=== PATIENT | male | born 1950 | race Caucasian/White ===

== ENCOUNTER 2021-11-21 15:59 | Emergency (ER) | payer SELFPAY ==
[2021-11-21] MEDS ORDERED: Acetaminophen/oxyCODONE 325-5 MG Tab PO ONE (16:00)
[2021-11-21] MEDS ORDERED: Sodium Chloride 0.9% 10 ML Syringe FLUSH PRN (16:19)
[2021-11-21] MEDS ORDERED: Ondansetron 4 MG/2 ML SDV IVPUSH ONE (16:22)
[2021-11-21] MEDS ORDERED: fentaNYL 100 MCG/2 ML SDV IVPUSH ONE (16:24)
[2021-11-21] MEDS ORDERED: Iopamidol 612 MG/ML 100 ML Bottle IVPUSH ONE (16:25)
[2021-11-21 16:50] LABS: ANION GAP 14.7 mEq/L (7-13); CHLORIDE,CL 103 mmol/L (98-107); SODIUM,NA 139 mmol/L (136-145)
[2021-11-21 17:01] LABS: ESTIMATED GFR 76 mL/min (>=60)
[2021-11-21 17:17] LABS: PTT,PARTIAL THROMBOPLSTIN TIME 23.5 SEC (22.0-34.0)
[2021-11-21] MEDS ORDERED: HYDROmorphone 1 MG/ML Syringe IVPUSH ONE (17:21)
[2021-11-21] MEDS ORDERED: Bacitracin Oint 1 GM U/D Packet TOP ONE (17:45)
[2021-11-21] MEDS ORDERED: Acetaminophen/oxyCODONE 325-5 MG Tab ONE (18:55)
== END 2021-11-21 19:18 | disposition home or self-care (01) ==
LOC: DL.ED 15:59
DX: S06.0X1A Concussion with loss of consciousness of 30 minutes or less, initial encounter (principal); S00.03XA Contusion of scalp, initial encounter; M79.601 Pain in right arm; M79.602 Pain in left arm; W18.30XA Fall on same level, unspecified, initial encounter
CPT/HCPCS: 36415; 70450; 71260; 72125; 72128; 73030; 74177; 80053; 80307; 82150; 83690; 84484; 85025; 85610; 85730; 93005; 96374; 96375; 99285; A9270; J1170; J2405; J3010; Q9967; 93010; 99284